=== PATIENT | female | born 1995 | race Caucasian/White ===

== ENCOUNTER 2016-12-07 12:40 | Emergency (ER) | payer OTHER ==
[~2016-12-07] VITALS: Ht 152.4 cm; Wt 65.8 kg
[2016-12-07 13:39] LABS: MONONUCLEOSIS PATIENT NEGATIVE (NEGATIVE)
--- NOTE | 2016-12-07 13:56 | PHYS DOC ---
General Chief Complaint: SORE THROAT Stated Complaint: SORE THROAT Time Seen by MD: 13:11 Source: patient, family Exam Limitations: no limitations Problems: History of Present Illness Initial Comments Patient is a 21-year-old female 36 weeks gestation she is 1 para 0 accompanied by her spouse for congestion and sore throat. Patient states that she had nasal drainage and congestion yesterday, she woke today with a scratchy throat. Throat discomfort has not caused any dysphasia or airway compromise the patient has had no trouble eating or drinking. She has not contacted her drop wire operator nor has she tried any [id number] medications as she states she doesn't know what she is allowed to take while . I advised her that her OB doctor would like to be called for any issues initially while she was . Rapid strep and mono studies ordered She denies any risk factors no gestational diabetes induced hypertension no group B strep and no preeclampsia. Timing/Duration: gradual, yesterday Severity: mild Location: nose, throat Prearrival Treatment: no prearrival treatment Modifying Factors: improves with coughing, improves with other Associated Symptoms: cough, nasal congestion/drainage, sore throat Allergies: Coded Allergies: No Known Drug Allergies (Unverified , 11/02/15) Past Medical History Medical History: no pertinent history Surgical History: noncontributory LMP (Females 10-50): Social History Smoker: non-smoker Alcohol: none Drugs: none Constitutional: denies chills, denies diaphoresis, denies fever, denies malaise Eyes: denies blindness, denies blurred vision, denies drainage, denies decreased acuity Ears: denies dizziness, denies pain, denies tinnitus Nose: denies clots, congestion, denies epistaxis Throat: see HPI, denies neck stiffness, denies painful swallowing, denies difficulty with fluids Respiratory: cough, denies shortness of breath, denies wheezing Cardiovascular: denies chest pain, denies palpitations Gastrointestinal: denies abdominal pain, denies nausea, denies vomiting Physical Exam General Appearance: WD/WN, no apparent distress Eyes: bilateral eye normal inspection, bilateral eye PERRL, bilateral eye EOMI Ears: bilateral ear auricle normal, bilateral ear canal normal, bilateral ear TM normal Nose: other (turbinates inflamed with clear nasal discharge no evidence of epistaxis no dried blood in nares) Mouth/Throat: normal mouth inspection (pharynx is mildly red with postnasal drip no tonsillar enlargement or exudate no vesicles noted airway is patent) Neck: full range of motion, supple, trachea midline Cardiovascular/Respiratory: normal peripheral pulses, normal breath sounds Neurologic/Psychiatric: complaints coordinator II-XII nml as tested, no motor/sensory deficits, normal mood/affect, oriented x 3 Skin: normal color, warm/dry Orders, Labs, Meds Rapid strep and rapid mono are negative in the ED. I discussed medications of . I discussed likely etiology viral process and that antibiotics would be of no benefit. I discussed supportive care as well as kyxe-bny-gdkmryo medications and the patient is agreeable. I advised her to call her OB with any issues while prior to seeking any other nonemergent medical treatment. Patient expressed agreement and understanding of treatment plan. Departure Time of Disposition: 13:52 Disposition: 01 HOME, SELF-CARE Diagnosis: upper respiratory infection, Condition: GOOD Patient Instructions: Medicines During , Upper Respiratory Infection, Adult, Qnho-[id number] Additional Instructions: Aggressive hydration to prevent dehydration. Please review the patient education materials regarding medications approved during . As discussed, your infection is likely viral. Contact your LINE PERSON first if symptoms persist for five days or longer. Return to ED with new or changing symptoms. JAMIA TSANG DO Dec 07, 2016 13:56
[2016-12-07 14:10] VITALS: BP 111/43
== END 2016-12-07 14:10 | disposition home or self-care (01) ==
LOC: ER 12:40
DX: O99.513 Diseases of the respiratory system complicating pregnancy, third trimester (principal); J06.9 Acute upper respiratory infection, unspecified; Z3A.36 36 weeks gestation of pregnancy
CPT/HCPCS: 86308; 87880; 99284

== ENCOUNTER 2018-09-26 10:09 | Emergency (ER) | payer OTHER ==
[~2018-09-26] VITALS: Ht 152.4 cm; Wt 59.0 kg
[2018-09-26] MEDS ORDERED: IV NORMAL SALINE 1,000ML 1,000 ML IV ONE (10:30)
--- NOTE | 2018-09-26 10:37 | PHYS DOC ---
Past History Past Medical History: No Pertinent History Past Surgical History: No Surgical History Alcohol Use: Occasionally Drug Use: None Adult General Chief Complaint Chief Complaint: ABDOMINAL PAIN HPI HPI 23-year-old female presents with lower abdominal pain. She has had intermittent pain for last 6 days. She comes in today because his been more consistent yesterday and especially this morning. The patient is scheduled for surgery on Wednesday. She is having plastic surgery of her abdominal skin. She has had some mild dysuria. She denies increased urinary frequency. She has a history of UTIs in the past. She took a home UTI test and it was partially positive. She denies change in vaginal discharge. Her last period was 3 weeks ago. She had a fever yesterday of 102. She took Tylenol and it went down. Review of Systems Review of Systems Constitutional: Denies fever or chills [] Eyes: Denies change in visual acuity, redness, or eye pain [] HENT: Denies nasal congestion or sore throat [] Respiratory: Denies cough or shortness of breath [] Cardiovascular: No additional information not addressed in HPI [] GI: Denies abdominal pain, nausea, vomiting, bloody stools or diarrhea [] : Dysuria [] Musculoskeletal: Denies back pain or joint pain [] Integument: Denies rash or skin lesions [] Neurologic: Denies headache, focal weakness or sensory changes [] Endocrine: Denies polyuria or polydipsia [] All other systems were reviewed and found to be within normal limits, except as documented in this note. Current Medications Current Medications Current Medications Medications (Trade) Dose Ordered Sig/[facility] Start Time Stop Time Status Last Admin Dose Admin Iohexol (Omnipaque 300 Mg/ml) 75 ml 1X ONCE 09/26/18 11:00 09/26/18 11:01 Sodium Chloride 1,000 ml @ 1,000 mls/hr 1X ONCE 09/26/18 10:30 09/26/18 11:29 Allergies Allergies Allergies Coded Allergies Type Severity Reaction Last Updated Verified No Known Drug Allergies 09/26/18 No Physical Exam Physical Exam Constitutional: Well developed, well nourished, no acute distress, non-toxic appearance. [] HENT: Normocephalic, atraumatic, bilateral external ears normal, oropharynx moist, no oral exudates, nose normal. [] Eyes: PERRLA, EOMI, conjunctiva normal, no discharge. [] Neck: Normal range of motion, no tenderness, supple, no stridor. [] Cardiovascular:Heart rate regular rhythm, no murmur [] Lungs & Thorax: Bilateral breath sounds clear to auscultation [] Abdomen: Bowel sounds normal, soft, mild suprapubic tenderness, no masses, no pulsatile masses. [] Skin: Warm, dry, no erythema, no rash. [] Back: No tenderness, no CVA tenderness. [] Extremities: No tenderness, no cyanosis, no clubbing, ROM intact, no edema. [] Neurologic: Alert and oriented X 3, normal motor function, normal sensory function, no focal deficits noted. [] Psychologic: Affect normal, judgement normal, mood normal. [] EKG EKG [] Radiology/Procedures Radiology/Procedures [] Impressions: Exam performed: X-ray abdomen KUB. Clinical Indication: Abdominal pain, constipation Date of Service: 09/26/2018 Comparison: None available FINDINGS: Supine radiograph of the abdomen and pelvis reveals no evidence of ileus or obstruction. There is diffuse scattered stool throughout the colon. Definite pathologic calcification or organomegaly is not identified. The visualized osseous structures appear unremarkable. Impression: 1. Diffuse scattered stool throughout the colon suggesting constipation. Electronically signed by: Lani Mcgregor MD (09/26/2018 12:46 PM) [facility] DICTATED AND SIGNED BY: LANI MCGREGOR MD DATE: 09/26/18 1246 CC: ARSENIO PERES DO; ELIDA PAYNE DO ~ Course & Med Decision Making Course & Med Decision Making Pertinent Labs and Imaging studies reviewed. (See chart for details) Patient's labs are unremarkable. Her urinalysis is negative for infection, however there is moderate bacteria. This could be bacterial vaginosis. I discussed performing a pelvic exam for the patient so that we can send swabs for a wet prep and GC chlamydia. She has agreed to this test. The patient's wet prep is negative for BV, Trichomonas, or yeast infection. Her KUB does show fairly significant stool burden. Her pain could be due to constipation. I've advised that she do a bowel cleanout today at home with magnesium citrate. This should not prevent her from having surgery on Wednesday. She is stable for discharge at this time. [] Dragon Disclaimer Dragon Disclaimer This electronic medical record was generated, in whole or in part, using a voice recognition dictation system. Departure Departure: Impression: Primary Impression: Constipation by delayed colonic transit Disposition: HOME, SELF-CARE Condition: STABLE Referrals: ELIDA PAYNE DO (PCP) Patient Instructions: Constipation, Adult, [id number] Additional Instructions: Please drink one bottle of magnesium citrate when you get home. This will induce several bowel movements, but should wear off by tomorrow morning. ARSENIO PERES DO Sep 26, 2018 10:37
[2018-09-26 10:45] LABS: BASO % 0 % (0-3); EOS % 0 % (0-3); HEMATOCRIT 41.4 % (36.0-47.0); HEMOGLOBIN 13.8 g/dL (12.0-15.5); LYMPH # 0.5 x10^3/uL (1.0-4.8); LYMPH % 8 % (24-48); MEAN CORPUSCULAR HEMOGLOBIN 30 pg (25-35); MEAN CORPUSCULAR HGB CONC 33 g/dL (31-37); MEAN CORPUSCULAR VOLUME 88 fL (79-100); MONO # 0.6 x10^3/uL (0.0-1.1); MONO % 8 % (0-9); NEUT # 6.1 x10^3uL (1.8-7.7); NEUT % 84 % (31-73); PLATELET COUNT 161 x10^3/uL (140-400); RED BLOOD COUNT 4.69 x10^6/uL (3.50-5.40); RED CELL DISTRIBUTION WIDTH 13.5 % (11.5-14.5); WHITE BLOOD COUNT 7.2 x10^3/uL (4.0-11.0)
[2018-09-26 10:52] LABS: BILIRUBIN,URINE SMALL (NEG); CLARITY,URINE HAZY; COLOR,URINE AMBER; GLUCOSE,URINE NEG (NEG)
[2018-09-26 10:53] LABS: BACTERIA,URINE MOD /HPF (0-FEW); NITRITE,URINE NEG (NEG); RBC,URINE OCC /HPF (0-2); SQUAMOUS EPITHELIAL CELL,UR FEW /LPF; U PREG PATIENT NEGATIVE (NEG); UROBILINOGEN,URINE 1 mg/dL (0.2 mg/dL)
[2018-09-26 10:57] LABS: ALBUMIN 3.9 g/dL (3.4-5.0); GFR 67.6; POTASSIUM 3.7 mmol/L (3.5-5.1); TOTAL BILIRUBIN 0.4 mg/dL (0.2-1.0); TOTAL PROTEIN 7.9 g/dL (6.4-8.2)
[2018-09-26] MEDS ORDERED: IOHEXOL 300 MG/ML 75 ML VIAL. IV ONE (11:00)
--- NOTE | 2018-09-26 12:50 | RAD ---
Exam performed: X-ray abdomen KUB. Clinical Indication: Abdominal pain, constipation Date of Service: 09/26/2018 Comparison: None available FINDINGS: Supine radiograph of the abdomen and pelvis reveals no evidence of ileus or obstruction. There is diffuse scattered stool throughout the colon. Definite pathologic calcification or organomegaly is not identified. The visualized osseous structures appear unremarkable. Impression: 1. Diffuse scattered stool throughout the colon suggesting constipation. Electronically signed by: Lani Mcgregor MD (09/26/2018 12:46 PM) [facility]
[2018-09-26 13:05] VITALS: BP 107/49
[2018-09-27 17:08] LABS: CHLAMYDIA PROBE Negative (Negative)
== END 2018-09-26 13:05 | disposition home or self-care (01) ==
LOC: ER 10:09
DX: K59.01 Slow transit constipation (principal); R30.0 Dysuria; Z87.440 Personal history of urinary (tract) infections
CPT/HCPCS: 36415; 74018; 80053; 81001; 81025; 85025; 87086; 87491; 87591; 99285; Q0111; 87186; J7030

== ENCOUNTER 2018-10-07 15:43 | Emergency (ER) | payer OTHER ==
[~2018-10-07] VITALS: Ht 152.4 cm; Wt 56.7 kg
[2018-10-07 15:59] VITALS: BP 107/52
[2018-10-07] MEDS ORDERED: DOXY50CA PO (16:18)
--- NOTE | 2018-10-07 16:18 | PHYS DOC ---
Past History Past Medical History: No Pertinent History Past Surgical History: Alcohol Use: Occasionally Drug Use: None Adult General Chief Complaint Chief Complaint: POST-OP PROBLEM HPI HPI 23-year-old female presents with concern for postop infection. The patient had a tummy tuck September 28. She was given 7 days of Keflex for prophylaxis. She had her drains removed 2 days ago. Since that time, the right drain site has developed a thicker yellowish discharge. It seems to be increasing in amount not decreasing. The patient is concern for infection. It is Wednesday afternoon she could not get in for follow-up. Patient denies fever or chills. She has quite a bit of soreness from the surgery. She has no other complaints. Review of Systems Review of Systems Constitutional: Denies fever or chills [] Eyes: Denies change in visual acuity, redness, or eye pain [] HENT: Denies nasal congestion or sore throat [] Respiratory: Denies cough or shortness of breath [] Cardiovascular: No additional information not addressed in HPI [] GI: Lower abdominal pain. Denies nausea, vomiting, bloody stools or diarrhea [] : Denies dysuria or hematuria [] Musculoskeletal: Denies back pain or joint pain [] Integument: Denies rash or skin lesions [] Neurologic: Denies headache, focal weakness or sensory changes [] Endocrine: Denies polyuria or polydipsia [] All other systems were reviewed and found to be within normal limits, except as documented in this note. Allergies Allergies Allergies Coded Allergies Type Severity Reaction Last Updated Verified No Known Drug Allergies 09/26/18 No Physical Exam Physical Exam Constitutional: Well developed, well nourished, no acute distress, non-toxic appearance. [] HENT: Normocephalic, atraumatic, bilateral external ears normal, oropharynx moist, no oral exudates, nose normal. [] Eyes: PERRLA, EOMI, conjunctiva normal, no discharge. [] Neck: Normal range of motion, no tenderness, supple, no stridor. [] Cardiovascular:Heart rate regular rhythm, no murmur [] Lungs & Thorax: Bilateral breath sounds clear to auscultation [] Abdomen: Bowel sounds normal, soft, surgical incision with sutures, lower abdominal tenderness, no masses, no pulsatile masses. [] Skin: Warm, dry, no erythema, no rash. There is purulent drainage from the right drain site concerning for infection. The patient is most tender in this area. No palpable abscess. Surrounding skin is erythematous and warm.[] Back: No tenderness, no CVA tenderness. [] Extremities: No tenderness, no cyanosis, no clubbing, ROM intact, no edema. [] Neurologic: Alert and oriented X 3, normal motor function, normal sensory function, no focal deficits noted. [] Psychologic: Affect normal, judgement normal, mood normal. [] Current Patient Data Vital Signs Vital Signs Date Time Temp Pulse Resp B/P (MAP) Pulse Ox O2 Delivery O2 Flow Rate FiO2 10/07/18 15:59 97.9 90 16 97 Room Air EKG EKG [] Radiology/Procedures Radiology/Procedures [] Course & Med Decision Making Course & Med Decision Making Pertinent Labs and Imaging studies reviewed. (See chart for details) Based on the history and physical exam, I am concerned for infection of the woun d site. I do not palpate a drainable abscess. The patient was on Keflex. I will place her on doxycycline for broader coverage in case there is now Keflex resistance. The patient is stable for discharge at this time. [] Dragon Disclaimer Dragon Disclaimer This electronic medical record was generated, in whole or in part, using a voice recognition dictation system. Departure Departure: Impression: Primary Impression: Postoperative infection Disposition: 01 HOME, SELF-CARE Condition: STABLE Referrals: ELIDA PAYNE DO (PCP) Patient Instructions: Cellulitis, Tpph-fq-[id number] Scripts Doxycycline Hyclate (DOXYCYCLINE HYCLATE) 50 Mg Capsule 1 CAP PO BID for cellulitis for 7 Days, #14 CAP Prov: ARSENIO PERES DO 10/07/18 Problem Qualifiers Primary Impression: Postoperative infection Encounter type: initial encounter Postoperative infection type: superficial incisional surgical site Qualified Codes: T81.41XA - Infection following a procedure, superficial incisional surgical site, initial encounter ARSENIO PERES DO Oct 07, 2018 16:18
== END 2018-10-07 16:25 | disposition home or self-care (01) ==
LOC: ER 15:43
DX: T81.41XA Infection following a procedure, superficial incisional surgical site, initial encounter (principal); Z98.890 Other specified postprocedural states
CPT/HCPCS: 99283

== ENCOUNTER 2018-10-29 18:02 | Emergency (ER) | payer OTHER ==
[~2018-10-29 18:02] MED LIST: DOXY50CA PO
[2018-10-29 18:09] VITALS: BP 109/67
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
[2018-10-29] MEDS ORDERED: IOHEXOL 300 MG/ML 75 ML VIAL. IV ONE (18:30)
[2018-10-29 18:40] LABS: BASO % 1 % (0-3); EOS # 0.2 x10^3/uL (0.0-0.7); EOS % 4 % (0-3); HEMATOCRIT 37.4 % (36.0-47.0); HEMOGLOBIN 12.1 g/dL (12.0-15.5); LYMPH # 1.9 x10^3/uL (1.0-4.8); LYMPH % 35 % (24-48); MEAN CORPUSCULAR HEMOGLOBIN 29 pg (25-35); MEAN CORPUSCULAR HGB CONC 32 g/dL (31-37); MEAN CORPUSCULAR VOLUME 90 fL (79-100); MONO # 0.4 x10^3/uL (0.0-1.1); MONO % 7 % (0-9); NEUT % 54 % (31-73); PLATELET COUNT 202 x10^3/uL (140-400); RED BLOOD COUNT 4.17 x10^6/uL (3.50-5.40); RED CELL DISTRIBUTION WIDTH 14.2 % (11.5-14.5); WHITE BLOOD COUNT 5.5 x10^3/uL (4.0-11.0)
[2018-10-29 18:55] LABS: PREG TEST PT QUAL NEGATIVE (NEG)
[2018-10-29 18:57] LABS: ALBUMIN 3.8 g/dL (3.4-5.0); CALCIUM 8.9 mg/dL (8.5-10.1); CREATININE 0.8 mg/dL (0.6-1.0); GFR 87.4; POTASSIUM 3.7 mmol/L (3.5-5.1); TOTAL BILIRUBIN 0.4 mg/dL (0.2-1.0); TOTAL PROTEIN 7.6 g/dL (6.4-8.2)
[2018-10-29] MEDS ORDERED: CONTRAST GIVEN MC PRN (19:00)
[2018-10-29] MEDS ORDERED: KETOROLAC 15 MG/ML VIAL. IV ONE (20:15)
[2018-10-29 20:17] LABS: BARBITURATES NEG (NEG); BENZODIAZEPINES NEG (NEG); CANNABINOIDS NEG (NEG); COCAINE NEG (NEG); METHADONE NEG (NEG); OPIATES NEG (NEG); PHENCYCLIDINE NEG (NEG)
[2018-10-29 20:18] LABS: AMPHETAMINE/METHAMPHETAMINE NEG (NEG)
[2018-10-29 20:22] LABS: BACTERIA,URINE MANY /HPF (0-FEW); BILIRUBIN,URINE NEG (NEG); CLARITY,URINE CLOUDY; COLOR,URINE YELLOW; GLUCOSE,URINE NEG (NEG); NITRITE,URINE POS (NEG); SQUAMOUS EPITHELIAL CELL,UR OCC /LPF; UROBILINOGEN,URINE 0.2 mg/dL (0.2 mg/dL)
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
[2018-10-29] MEDS ORDERED: ORPH-16 PO (21:05)
[2018-10-29] MEDS ORDERED: MELO7.5T29 PO (21:05)
== END 2018-10-29 21:11 | disposition home or self-care (01) ==
LOC: ER 18:02
DX: S16.1XXA Strain of muscle, fascia and tendon at neck level, initial encounter (principal); R55 Syncope and collapse; R10.30 Lower abdominal pain, unspecified; V59.49XA Driver of pick-up truck or van injured in collision with other motor vehicles in traffic accident, initial encounter; Y93.I9 Activity, other involving external motion; Y92.89 Other specified places as the place of occurrence of the external cause; Y99.8 Other external cause status
CPT/HCPCS: 36415; 70450; 71260; 72125; 74177; 80053; 80307; 81001; 83605; 83690; 84703; 85025; 85610; 85730; 96374; 99285; G0480; J1885; Q9967

== ENCOUNTER 2019-10-12 22:37 | Emergency (ER) | payer OTHER ==
[~2019-10-12] VITALS: Ht 152.4 cm; Wt 70.0 kg
[~2019-10-12 22:37] MED LIST changes: +MELO7.5T29 PO; +ORPH-16 PO
--- NOTE | 2019-10-12 23:20 | PHYS DOC ---
Past History Past Medical History: No Pertinent History Past Surgical History: , Other Additional Past Surgical Histo: abdominoplasty, breast implants, Smoking: Non-smoker Alcohol Use: Occasionally Drug Use: None Adult General Chief Complaint Chief Complaint: VAGINAL PROBLEM HPI HPI Patient is a 24-year-old female who presents for vaginal discharge. Onset was first noticed 2 days ago and worsening. Nothing known makes better or worse. Patient denies any pain. Patient reports boggs/white vaginal discharge with mild odor. Denies any recent changes in medication or antibiotic use. Admits to being sexually active with x1 partner, her whom she does not use any methods of contraception with. She does not have a history of STDs, reports her does not either. Patient has history of UTIs but denies this feels like previous episodes, denies any dysuria, denies any symptoms just concerned due ch uriel in vaginal discharge versus baseline. No fever, no COVID-19 contacts, no UTI-like symptoms Review of Systems Review of Systems Fourteen body systems of review of systems have been reviewed. See HPI for pertinent positives and negative responses, other ulloa all other systems are negative, non-pertinent or non-contributory Allergies Allergies Allergies Coded Allergies Type Severity Reaction Last Updated Verified No Known Drug Allergies 09/26/18 No Physical Exam Physical Exam Constitutional: Well developed, well nourished, no acute distress, non-toxic appearance. HENT: Normocephalic, atraumatic, bilateral external ears normal, nose normal; dry mucous membranes Eyes: PERRLA, conjunctiva normal, no discharge. Neck: Normal range of motion, no stridor. Cardiovascular: Heart rate regular rhythm Lungs & Thorax: Respirations even and unlabored, no retractions, no respiratory distress, lungs clear throughout all shelley Pelvic Exam: Multimedia Specialist present Abdomen: Nontender, soft External Genitalia: Normal Skin Speculum: Normal vaginal mucosa, normal cervical discharge Bimanual: No adnexal masses or tenderness, No CMT, minimal white/boggs discharge present in vaginal vault without any signs of trauma or retained foreign bodies back: nontender to palpation Skin: Warm, dry, no erythema, no rash. Extremities: No cyanosis, ROM intact, no edema. Neurologic: Alert and oriented X 3, no focal deficits noted. Psychologic: Affect normal, judgement normal, mood anxious Current Patient Data Vital Signs Vital Signs Date Time Temp Pulse Resp B/P (MAP) Pulse Ox O2 Delivery O2 Flow Rate FiO2 10/12/19 23:08 98.2 58 20 119/67 (84) 99 Room Air Lab Results Laboratory Tests Test 10/12/19 23:22 Urine Collection Type Unknown Urine Color Yellow Urine Clarity Clear Urine pH 7.0 Urine Specific [place] 1.025 Urine Protein Neg Urine Glucose (UA) Neg mg/dL Urine Ketones (Stick) Neg mg/dL Urine Blood Neg Urine Nitrite Neg Urine Bilirubin Neg Urine Urobilinogen Dipstick 0.2 mg/dL Urine Leukocyte Esterase Neg Urine RBC 1-2 /HPF Urine WBC 0 /HPF Urine Squamous Epithelial Cells Few /LPF Urine Bacteria 0 /HPF Urine Test Negative EKG EKG [] Radiology/Procedures Radiology/Procedures [] Course & Med Decision Making Course & Med Decision Making Patient seen and examined by myself on immediate ER arrival Airway patent, breathing intact, vital signs obtained and grossly non-concerning Comprehensive history and physical exam obtained with subsequent ordering of tests and need for pelvic exam Diagnostic work-up while in ER resulted in negative , negative urinalysis, negative wet prep I offered patient syphilis and HIV testing and she is unsure if she is these have been done in the outpatient setting, these were obtained and patient to follow-up with PCP for results Patient reported being up-to-date on Pap smears with no prior abnormals, again deferring to PCP for further management of this ED course reviewed, discussed no obvious signs of patient symptomology and an otherwise asymptomatic hemodynamically stable patient Discussed diagnostic studies performed this visit, discussed lower likelihood gonorrhea, chlamydia, HIV, and syphilis tests were pending Joint decision to defer presumptive STD testing based on history and physical exam findings Patient reported good report in outpatient setting with PCP and would be able to follow-up within the upcoming 1 to 5 days time Joint decision to discharge home in stable condition with supportive care and close PCP follow-up Strict return precautions, all questions and concerns addressed Dragon Disclaimer Dragon Disclaimer This electronic medical record was generated, in whole or in part, using a voice recognition dictation system. Departure Departure: Impression: Primary Impression: Vaginal discharge Disposition: HOME/RESIDENCE PRIOR TO ADM Condition: STABLE Referrals: PCP,UNKNOWN (PCP) Additional Instructions: As discussed prior to ER departure, please call your PCP first thing this morning to schedule outpatient follow-up in upcoming 3 to 5 days Again, no obvious abnormalities found during your work-up today requiring medical intervention You still have gonorrhea, chlamydia, syphilis, and HIV laboratory test pending, please follow-up with your PCP regarding these results. If you do not hear back by next week, please feel free to call our ER and we can discuss these over the phone If your condition worsens by any means please feel free to call your PCP or re- present at our ER for further diagnostic work-up and management It was a pleasure to take care of you and we hope you get feeling better soon! Justification of Admission: Justification of Admission: Justification of Admission Dx: N/A SUBHASH ORNELAS DO Oct 12, 2019 23:20
[2019-10-13 00:41] LABS: CLARITY,URINE CLEAR; COLOR,URINE YELLOW
[2019-10-13 00:42] LABS: BACTERIA,URINE 0 /HPF (0-FEW); BILIRUBIN,URINE NEG (NEG); GLUCOSE,URINE NEG (NEG); NITRITE,URINE NEG (NEG); UROBILINOGEN,URINE 0.2 mg/dL (0.2 mg/dL); WBC,URINE 0 /HPF (0-4)
[2019-10-13 00:43] LABS: SQUAMOUS EPITHELIAL CELL,UR FEW /LPF; U PREG PATIENT NEGATIVE (NEG)
[2019-10-13 01:07] VITALS: BP 129/72
[2019-10-16 22:07] LABS: CHLAMYDIA PROBE Negative (Negative)
== END 2019-10-13 02:07 | disposition home or self-care (01) ==
LOC: ER 22:37
DX: N89.8 Other specified noninflammatory disorders of vagina (principal); Z98.890 Other specified postprocedural states
CPT/HCPCS: 36415; 81001; 81025; 86592; 86703; 87491; 87591; 99284; Q0111; 96361; 99283

== ENCOUNTER 2019-10-23 20:12 | Emergency (ER) | payer OTHER ==
[~2019-10-23] VITALS: Ht 152.4 cm; Wt 60.1 kg
[2019-10-23 20:20] VITALS: BP 114/76
--- NOTE | 2019-10-23 20:39 | PHYS DOC ---
Past History Past Medical History: No Pertinent History Past Surgical History: , Other Additional Past Surgical Histo: abdominoplasty, breast implants, Smoking: Non-smoker Alcohol Use: Occasionally Drug Use: None Adult General Chief Complaint Chief Complaint: CHEST PAIN [facility] HPI Patient is a 24-year-old female who presents for chest pain. Patient reports having this chest pain for "years ". Patient reports having intermittent episodes that are random on onset and typically lasts less than 15 minutes. Nonetheless, patient suffered episode 24 to 48 hours ago that lasted approximately 2 hours before resolving spontaneously. Patient called her PCP after hours to discuss this and at that time, it was recommended that she seek care at her nearest ER for evaluation. Nonetheless, patient waited nearly 24 hours and presented today for evaluation. She is asymptomatic at present. She is worried given continued recurrence of chest pain. She is not a smoker, does not have significant family history of heart disease, she has no risk factors, she has not passed out while playing sports or working out, she has not had a full cardiac work-up performed in the past Review of Systems Review of Systems Fourteen body systems of review of systems have been reviewed. See HPI for pertinent positives and negative responses, other ulloa all other systems are negative, non-pertinent or non-contributory Allergies Allergies Allergies Coded Allergies Type Severity Reaction Last Updated Verified No Known Drug Allergies 09/26/18 No Physical Exam Physical Exam Constitutional: Well developed, well nourished, no acute distress, non-toxic appearance. HENT: Normocephalic, atraumatic, bilateral external ears normal, oropharynx moist, no oral exudates, nose normal. Eyes: PERRLA, EOMI, conjunctiva normal, no discharge. Neck: Normal range of motion, no tenderness, supple, no stridor. Cardiovascular: Heart rate regular, sinus rhythm, no murmurs rubs or gallops Lungs & Thorax: Bilateral breath sounds clear to auscultation Abdomen: Bowel sounds normal, soft, no tenderness, no masses, no pulsatile masses. Nonsurgical abdomen, no peritoneal signs Skin: Warm, dry, no erythema, no rash. Back: No tenderness, no CVA tenderness. Extremities: No tenderness, no cyanosis, no clubbing, ROM intact, no edema. Neurologic: Alert and oriented X 3, grossly normal motor & sensory function, no focal deficits noted. Psychologic: Affect normal, judgement normal, mood normal. Current Patient Data Vital Signs Vital Signs Date Time Temp Pulse Resp B/P (MAP) Pulse Ox O2 Delivery O2 Flow Rate FiO2 10/23/19 20:20 98.6 67 16 114/76 (89) 100 Room Air Lab Results Laboratory Tests Test 10/23/19 20:58 10/23/19 21:03 White Blood Count 7.6 x10^3/uL Red Blood Count 4.17 x10^6/uL Hemoglobin 12.3 g/dL Hematocrit 37.7 % Mean Corpuscular Volume 91 fL Mean Corpuscular Hemoglobin 30 pg Mean Corpuscular Hemoglobin Concent 33 g/dL Red Cell Distribution Width 13.7 % Platelet Count 192 x10^3/uL Neutrophils (%) (Auto) 59 % Lymphocytes (%) (Auto) 32 % Monocytes (%) (Auto) 7 % Eosinophils (%) (Auto) 2 % Basophils (%) (Auto) 1 % Neutrophils # (Auto) 4.5 x10^3uL Lymphocytes # (Auto) 2.4 x10^3/uL Monocytes # (Auto) 0.5 x10^3/uL Eosinophils # (Auto) 0.2 x10^3/uL Basophils # (Auto) 0.0 x10^3/uL Sodium Level 138 mmol/L Potassium Level 3.9 mmol/L Chloride Level 104 mmol/L Carbon Dioxide Level 28 mmol/L Anion Gap 6 Blood Urea Nitrogen 16 mg/dL Creatinine 1.0 mg/dL Estimated GFR (Cockcroft-Gault) 67.0 BUN/Creatinine Ratio 16 Glucose Level 105 mg/dL Calcium Level 8.6 mg/dL Total Bilirubin 0.2 mg/dL Aspartate Amino Transf (AST/SGOT) 19 U/L Alanine Aminotransferase (ALT/SGPT) 21 U/L Alkaline Phosphatase 61 U/L Troponin I Quantitative < 0.017 ng/mL Total Protein 7.2 g/dL Albumin 3.5 g/dL Albumin/Globulin Ratio 0.9 Lipase 193 U/L Bedside Urine HCG, Qualitative hcg negative EKG EKG EKG ordered and interpreted by myself at 2033 hrs. as sinus rhythm at 63 bpm, unremarkable intervals, no axis deviation, no fascicular blocks, no acute ischemic findings, no STEMI Radiology/Procedures Radiology/Procedures PROCEDURE: CHEST AP ONLY Exam: Chest one view INDICATION: Chest pain TECHNIQUE: Frontal view of the chest Comparisons: None FINDINGS: The cardiomediastinal silhouette and pulmonary vessels are within normal limits. The lung and pleural spaces are clear. IMPRESSION: No acute cardiopulmonary process. Electronically signed by: Gayle Orozco MD (10/23/2019 9:49 PM) [id number] Course & Med Decision Making Course & Med Decision Making Ambulatory patient who is well-appearing seen on arrival ABC is unremarkable Conference of history and physical exam obtained, pertinent diagnostic studies ordered Patient asymptomatic throughout entirety of ER visit after several re- evaluations by myself and other medical personnel Comprehensive work-up obtained, discussed nonemergent/nonsurgical findings with patient, discussed no further diagnostic work-up in ER setting indicated at this time Discussed there may be utility in further cardiovascular work-up such as echocardiogram in outpatient setting but no indication currently for admission or other work-up, patient understood and agreeable with Strict return precautions discussed with good understanding by patient, all q uestions and concerns prior to discharge home in stable condition Dragon Disclaimer Dragon Disclaimer This electronic medical record was generated, in whole or in part, using a voice recognition dictation system. The HEART Score for CP Pts HEART Score for Chest Pain: HEART Score for Chest Pain Response (Comments) Value History Slighlty/Non-Suspicious 0 ECG Normal 0 Age < 45 0 Risk Factors No Risk Factors 0 Troponin < Normal Limit 0 Total 0 Risk Factors: Risk Factors: DM, Current or recent (<one month) smoker, HTN, HLP, family history of CAD, obesity. Risk Scores: Score 0 - 3: 2.5% MACE over next 6 weeks - Discharge Home Score 4 - 6: 20.3% MACE over next 6 weeks - Admit for Clinical Observation Score 7 - 10: 72.7% MACE over next 6 weeks - Early Invasive Strategies Departure Departure: Impression: Primary Impression: Atypical chest pain Disposition: 01 HOME/RESIDENCE PRIOR TO ADM Condition: STABLE Referrals: PCP,UNKNOWN (PCP) Patient Instructions: Chest Pain (Nonspecific) Additional Instructions: As discussed prior to your ER departure, please follow-up with your primary care physician in upcoming 1 to 7 days for outpatient follow-up Your ER visit was reviewed with you, there were no emergent/surgical findings requiring further intervention I recommend you review laboratory and imaging studies perform this ER visit with your primary care physician, there might be indication for further diagnostic cardiovascular versus other work-up for your presenting symptoms Your educated regarding concerning signs or symptoms that should prompt immediate medical attention by either your PCP or emergency department, please do not hesitate to call or re-present to our ER for thorough medical evaluation if these were to arise It was a pleasure to take care of you and I wish you a speedy recovery! Justification of Admission: Justification of Admission: Justification of Admission Dx: N/A SUBHASH ORNELAS DO Oct 23, 2019 20:39
[2019-10-23 21:27] LABS: BASO % 1 % (0-3); EOS # 0.2 x10^3/uL (0.0-0.7); EOS % 2 % (0-3); HEMATOCRIT 37.7 % (36.0-47.0); HEMOGLOBIN 12.3 g/dL (12.0-15.5); LYMPH # 2.4 x10^3/uL (1.0-4.8); LYMPH % 32 % (24-48); MEAN CORPUSCULAR HEMOGLOBIN 30 pg (25-35); MEAN CORPUSCULAR HGB CONC 33 g/dL (31-37); MEAN CORPUSCULAR VOLUME 91 fL (79-100); MONO # 0.5 x10^3/uL (0.0-1.1); MONO % 7 % (0-9); NEUT # 4.5 x10^3uL (1.8-7.7); NEUT % 59 % (31-73); PLATELET COUNT 192 x10^3/uL (140-400); RED BLOOD COUNT 4.17 x10^6/uL (3.50-5.40); RED CELL DISTRIBUTION WIDTH 13.7 % (11.5-14.5); WHITE BLOOD COUNT 7.6 x10^3/uL (4.0-11.0)
[2019-10-23 21:29] LABS: CALCIUM 8.6 mg/dL (8.5-10.1); POTASSIUM 3.9 mmol/L (3.5-5.1)
[2019-10-23 21:35] LABS: ALBUMIN 3.5 g/dL (3.4-5.0); ALBUMIN/GLOBULIN RATIO 0.9 (1.0-1.7); TOTAL BILIRUBIN 0.2 mg/dL (0.2-1.0); TOTAL PROTEIN 7.2 g/dL (6.4-8.2)
--- NOTE | 2019-10-23 21:52 | RAD ---
Exam: Chest one view INDICATION: Chest pain TECHNIQUE: Frontal view of the chest Comparisons: None FINDINGS: The cardiomediastinal silhouette and pulmonary vessels are within normal limits. The lung and pleural spaces are clear. IMPRESSION: No acute cardiopulmonary process. Electronically signed by: Gayle Orozco MD (10/23/2019 9:49 PM) [id number]
--- NOTE | 2019-10-24 00:48 | EKG ---
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
== END 2019-10-23 22:17 | disposition home or self-care (01) ==
LOC: ER 20:12
DX: R07.89 Other chest pain (principal)
CPT/HCPCS: 36415; 71045; 80053; 81025; 83690; 84484; 85025; 93005; 99285